=== PATIENT | female | born 1995 | race Caucasian/White ===

== ENCOUNTER 2023-03-15 11:15 | Emergency (ER) | payer OTHER ==
[2023-03-15] MEDS: ALBUTEROL SO4 2.5/IPRATROPIUM 0.5 INH SOL 3 ML VIAL.NEB. NEB SCH ×4 (11:40→12:35)
[2023-03-15 12:04] VITALS: BP 128/97; PULSE 89; RESP 20; TEMP 98; BMI 33.2
[2023-03-15] MEDS ORDERED: predniSONE 20 MG TABLET (UD) PO ONE (12:21)
[2023-03-15] MEDS ORDERED: ALBUTEROL SO4 2.5/IPRATROPIUM 0.5 INH SOL 3 ML VIAL.NEB. NEB ONE (12:24)
[2023-03-15] MEDS ORDERED: predniSONE 20 MG TABLET (UD) ONE (12:24)
== END 2023-03-15 13:08 | disposition home or self-care (01) ==
LOC: FER 11:15
PROC: 3E0F7GC Introduction of Other Therapeutic Substance into Respiratory Tract, Via Natural or Artificial Opening (ICD-10-PCS; principal; 2023-03-15)
PROC: 3E0F7GC Introduction of Other Therapeutic Substance into Respiratory Tract, Via Natural or Artificial Opening (ICD-10-PCS; 2023-03-15)
DX: R05.9 Cough, unspecified (principal); R06.02 Shortness of breath; B34.9 Viral infection, unspecified; R09.81 Nasal congestion; R09.3 Abnormal sputum; Z20.822 Contact with and (suspected) exposure to COVID-19
CPT/HCPCS: 0241U-QW; 99284-25